=== PATIENT | female | born 1995 | race Caucasian/White ===

== ENCOUNTER → 2022-08-17 14:14 | Outpatient (CLI) | payer OTHER, SELFPAY ==
--- NOTE | ~2022-08-17 | US_ITS ---
EXAMINATION: US OB <= 14 weeks fetus DATE: 08/17/2022 14:40 INDICATION: First trimester with inconclusive viability TECHNIQUE: Real-time pelvic ultrasound utilizing both a transvaginal and transabdominal probe was pe rformed. The interpreting radiologist was not present for the study. COMPARISON: None. FINDINGS: The uterus measures 12.5 x 7.0 x 9.1 cm. There is an intrauterine gestational sac. A yolk sac and fe radha pole are identified. The crown rump length measures 4.9 cm, which correlates with an estimated ge stational age of 11 weeks and 5 days. heart motion is identified measuring 162 beats per minute (bpm) by M-mode Doppler. The right ovary measures 2.7 x 1.7 x 2.0 cm. The left ovary measures 2.7 x 2.0 x 1.9 cm. There is no free fluid in the pelvis. IMPRESSION: 1. Single living fetus with heart rate of 162 bpm. 2. Gestational age by ultrasound of 11 weeks 5 day(s) +/- 7 day(s) with ultrasound estimated date of delivery (KALA) of 03/03/2023. Reviewed, dictated and finalized at location A. OR PROPERTY ACCOUNTANT IMPRESSION: 1. Single living fetus with heart rate of 162 bpm. 2. Gestational age by ultrasound of 11 weeks 5 day(s) +/- 7 day(s) with ultras ound estimated date of delivery (KALA) of 03/03/2023.
== END ==
PROVIDERS: PCP Advanced Practice Midwife; Visit Provider Advanced Practice Midwife
DX: O36.80X0 Pregnancy with inconclusive fetal viability, not applicable or unspecified (principal); Z3A.11 11 weeks gestation of pregnancy
CPT/HCPCS: 76801

== ENCOUNTER 2022-09-29 11:00 | Outpatient (CLI) | payer OTHER, SELFPAY ==
[2022-09-29 12:38] LABS: Basophils Percent Auto 0.3 % (0.2-1.2); Eosinophils Percent Auto 0.3 % (0-4.4); Hematocrit 39.3 % (37.0-47.0); Hemoglobin 13.4 g/dL (12.0-15.0); Immature Granulocyte Absolute 0.05 K/mm3 (0.00-0.031); Immature Granulocyte Percent A 0.4 % (0-0.5); Lymphocytes Absolute Auto 1.82 K/mm3 (0.9-3.2); Lymphocytes Percent Auto 15.6 % (18.3-44.2); Mean Corpuscular HGB Conc 34.1 g/dl (32-36); Monocytes Absolute Auto 0.5 K/mm3 (0.1-0.6); Monocytes Percent Auto 4.6 % (2.6-8.5); Neutrophils Absolute Auto 9.2 K/mm3 (1.3-6.7); Neutrophils Percent Auto 78.8 % (45.5-73.1); Platelet Count Result 363 k/mm3 (150-375); Red Blood Count 4.32 M/mm3 (4.2-5.4); Red Cell Distribution Width 13.1 % (11.5-14.5); White Blood Count 11.7 K/mm3 (4.5-10.0)
[2022-09-29 13:14] LABS: Vitamin D 25 Hydroxy 46.9 ng/mL
[2022-09-29 13:32] LABS: HIV 1/2 Ab P24 Ag Result Negative (Negative)
[2022-09-29 13:40] LABS: Hemoglobin A1C 4.8 % (<5.7)
[2022-09-29 14:42] LABS: Hepatitis B Surface Antigen Negative (Negative)
[2022-10-02 12:19] LABS: Rapid Plasma Reagin Non-Reactive (NonReactive)
== END 2022-09-29 11:01 | disposition home or self-care (01) ==
LOC: ANHLAB 11:03
PROVIDERS: PCP Advanced Practice Midwife; Visit Provider Obstetrics & Gynecology Gynecology
DX: Z36.9 Encounter for antenatal screening, unspecified (principal); Z3A.00 Weeks of gestation of pregnancy not specified
CPT/HCPCS: 36415; 82306; 83036; 85025; 86592; 86703; 86762; 86850; 86900; 86901; 87340; G0432

== ENCOUNTER 2022-10-04 14:40 | Outpatient (CLI) | payer OTHER, SELFPAY ==
--- NOTE | ~2022-10-04 | US_ITS ---
EXAMINATION: US OB /maternal detail DATE: 10/04/2022 15:23 INDICATION: Second trimester anatomic survey TECHNIQUE: Real-time ultrasound of the pelvis was performed. COMPARISON: None. FINDINGS: There is a single living fetus in breech presentation. The placenta is anterior. The cervical length is 3.9 cm. heart rate is 136 beats per minute (bpm). cardiac activity and movement are noted. The amniotic fluid index is subjectively normal. The following anatomy was identified as normal: 4 chamber heart 3 vessel cord cord insertion kidneys urinary bladder stomach spine diaphragm ventricles cisterna magna cerebellum The following biometric data were obtained: Biparietal diameter (BPD): 4.5 cm; head circumference (HC): 16.5 cm; abdominal circumference (AC): 13 .1 cm; femur length (FL): 2.7 cm. These measurements are concordant. Estimated weight is 249 g +/- 37 g, which correlates with the 49th percentile when 03/03/2023 is used as estimated date of delivery. As single measurements, these parameters are each equal to the following estimated gestational ages w ith ranges of +/- 2 standard deviations: BPD: 19 weeks 4 days +/- 1 weeks 5 days. HC: 19 weeks 2 days +/- 1 weeks 3 days. AC: 18 weeks 5 days +/- 2 weeks 0 days. FL: 18 weeks 3 days +/- 1 weeks 6 days. estimated gestational age based solely on measurements from this exam is 19 weeks 0 days +/- 1 weeks 2 days. IMPRESSION: 1. Single living fetus in breech presentation. 2. Estimated weight is 249 g +/- 37 g, which correlates with the 49th percentile when 03/03/2023 is used as estimated date of delivery. Reviewed, dictated and finalized at location F. EL SCREENER IMPRESSION: 1. Single living fetus in breech presentation. 2. Estimated weight is 249 g +/- 37 g, which correlates with the 49th per centile when 03/03/2023 is used as estimated date of delivery.
== END 2022-10-04 14:41 | disposition home or self-care (01) ==
PROVIDERS: PCP Advanced Practice Midwife; Visit Provider Advanced Practice Midwife
DX: O32.1XX0 Maternal care for breech presentation, not applicable or unspecified (principal); Z3A.19 19 weeks gestation of pregnancy
CPT/HCPCS: 76805

== ENCOUNTER 2022-11-21 11:05 | Outpatient (CLI) | payer OTHER, SELFPAY ==
[2022-11-21] VITALS (11 sets, daily range): BP systolic 101–103; BP diastolic 59–62; PULSE 69–90; O2SAT 100
== END 2022-11-21 12:15 | disposition home or self-care (01) ==
LOC: ANHOBOP 11:12 → ANHOBPP 11:13
PROVIDERS: Visit Provider Obstetrics & Gynecology Gynecology
DX: O36.8120 Decreased fetal movements, second trimester, not applicable or unspecified (principal); Z3A.25 25 weeks gestation of pregnancy
CPT/HCPCS: 59025; 99199

== ENCOUNTER 2022-12-04 14:47 | Outpatient (CLI) | payer OTHER, SELFPAY ==
[2022-12-04 16:10] LABS: Hematocrit 38.3 % (37.0-47.0); Hemoglobin 12.8 g/dL (12.0-15.0)
[2022-12-04 16:22] LABS: Glucose 1 Hour PP 50gm Dose 97 mg/dL
[2022-12-04 17:00] LABS: HIV 1/2 Ab P24 Ag Result Negative (Negative)
[2022-12-04 18:19] LABS: Vitamin D 25 Hydroxy 40.7 ng/mL
== END 2022-12-04 14:48 | disposition home or self-care (01) ==
PROVIDERS: Visit Provider Obstetrics & Gynecology Gynecology
DX: Z34.03 Encounter for supervision of normal first pregnancy, third trimester (principal); Z3A.00 Weeks of gestation of pregnancy not specified
CPT/HCPCS: 36415; 82306; 82947; 85014; 85018; 86703; G0432

== ENCOUNTER 2023-02-13 10:35 | Outpatient (CLI) | payer OTHER, SELFPAY ==
--- NOTE | ~2023-02-13 | US_ITS ---
EXAMINATION: US OB follow up DATE: 02/13/2023 11:15 INDICATION: Dyspnea size greater than expected for estimated gestational age TECHNIQUE: Real-time ultrasound of the pelvis was performed. The interpreting radiologist was not pre sent for the study. COMPARISON: None. FINDINGS: There is a single living fetus in vertex presentation. The placenta is anterior. heart rate is 127 beats per minute (bpm). The amniotic fluid index is 15.1 cm, which is normal. (5th%-95%: 7.5-24 .4 cm at 37 weeks estimated gestational age). The following biometric data were obtained: BPD: 9.2 cm -> 37 weeks 1 days Head circumference: 32.9 cm -> 37 weeks 2 days Abdominal circumference: 35.3 cm -> 39 weeks 1 days Femur length: 7.6 cm -> 39 weeks 0 days These measurements are concordant. Head circumference to abdominal circumference ratio: 0.93 (normal range 0.89-1.06). Estimated weight: 3562 g (+/-) 534 g or 7 lbs. 14 oz. (+/-) 1 lbs. 3 oz. IMPRESSION: 1. Single living fetus in vertex presentation with heart rate of 127 bpm. 2. Normal amniotic fluid index of 15.1 cm. 3. Estimated weight is 87th percentile by Hadlock criteria when 03/03/2023 is used as the estima kai date of delivery (KALA). Please correlate with clinical information or earlier ultrasounds for mos t accurate KALA. Reviewed, dictated and finalized at location A. IMPRESSION: 1. Single living fetus in vertex presentation with heart rate of 127 bpm. 2. Normal amniotic fluid index of 15.1 cm. 3. Estimated weight is 87th percentile by Hadlock criteria when 03/03/2023 is used as the estimated date of delivery (KALA). Please correlate with clinica l information or earlier ultrasounds for most accurate KALA.
== END 2023-02-13 10:36 | disposition home or self-care (01) ==
PROVIDERS: Visit Provider Obstetrics & Gynecology Gynecology
DX: O36.63X0 Maternal care for excessive fetal growth, third trimester, not applicable or unspecified (principal); Z3A.00 Weeks of gestation of pregnancy not specified
CPT/HCPCS: 76816

== ENCOUNTER 2023-02-20 15:18 | Inpatient (IN) | payer OTHER, SELFPAY ==
[2023-02-20] VITALS (57 sets, daily range): BP systolic 37–127; BP diastolic 15–109; PULSE 71–130; TEMP 36.7–37; O2SAT 100; BMI 29.1
--- NOTE | 2023-02-20 19:56 | LDADM ---
This patient, Abi Burnett, was admitted to Labor/Delivery/Recovery 105 on 02/20/23 at 15:18. Plans for labor, pain management and were discussed with patient. Patient/family oriented to hospital policies and general routines including ID bracelet, bed and alarms, visiting hours, pain management, procedures, bathroom and other care routines, personal items, smoking policy, room service/diet and guest tray routines, security routines, and visiting hours. Patient/Family are encouraged to report perceived risks to care and to ask questions if they do not understand what they are told or what they should do. See OBIX for further documentation.
[2023-02-20 20:24] LABS: Basophils Absolute Auto 0.1 K/mm3 (0.0-0.1); Basophils Percent Auto 0.4 % (0.2-1.2); Eosinophils Absolute Auto 0.1 K/mm3 (0-0.3); Eosinophils Percent Auto 0.4 % (0-4.4); Hematocrit 40.2 % (37.0-47.0); Hemoglobin 13.1 g/dL (12.0-15.0); Immature Granulocyte Percent A 0.7 % (0-0.5); Lymphocytes Absolute Auto 2.66 K/mm3 (0.9-3.2); Lymphocytes Percent Auto 18.1 % (18.3-44.2); Mean Corpuscular HGB Conc 32.6 g/dl (32-36); Mean Corpuscular Hemoglobin 28.6 pg (26-34); Mean Corpuscular Volume 87.8 fl (80-100); Mean Platelet Volume 11.2 fl (7.4-10.4); Monocytes Absolute Auto 0.8 K/mm3 (0.1-0.6); Monocytes Percent Auto 5.5 % (2.6-8.5); Neutrophils Percent Auto 74.9 % (45.5-73.1); Platelet Count Result 317 k/mm3 (150-375); Red Blood Count 4.58 M/mm3 (4.2-5.4); Red Cell Distribution Width 13.1 % (11.5-14.5); White Blood Count 14.7 K/mm3 (4.5-10.0)
[2023-02-20] MEDS: LACTATED RINGERS 1,000 ML 125 ML IV CONT ×2 (20:26→23:15)
[2023-02-20] MEDS: AMPICILLIN 2 GM/NS 100 ML 2 GM/100 ML BAG IVPB (20:27)
--- NOTE | 2023-02-20 22:20 | WPDANESEPP ---
Anes - Eval Pre Procedure Procedure: labor epidural Date/Time: 02/20/23 22:20 Surgeon: carrie Preop Diagnosis: pain during labor Pre Op Diagnosis: Labor Patient Data Age: 28 Gender: F Height: 1.65 m Weight: 79.5 kg Last Vital Signs Temp 36.7 C 02/20/23 15:45 Pulse 72 02/20/23 22:16 BP 127/83 02/20/23 22:16 Allergies Allergy/AdvReac Type Severity Reaction Status Date / Time cefadroxil Allergy Unknown unknown Verified 11/21/22 18:28 adhesive tape AdvReac Blister Verified 02/02/23 12:41 Home Medications Medication Instructions Recorded Confirmed Type albuterol sulfate 90 mcg/actuation 2 puff inhalation Q6H PRN 11/21/22 11/21/22 History aerosol inhaler Shortness Of Breath aspirin 81 mg chewable tablet 81 mg PO DAILY 11/21/22 11/21/22 History vit no.95-ferrous 1 tablet PO HS 11/21/22 11/21/22 History fumarate 28 mg-folic acid 800 mcg tablet () sertraline 25 mg tablet 25 mg PO HS 11/21/22 11/21/22 History Laboratory Tests 02/20/23 18:45 WBC 14.7 H K/mm3 (4.5-10.0) RBC 4.58 M/mm3 (4.2-5.4) Hgb 13.1 g/dL (12.0-15.0) Hct 40.2 % (37.0-47.0) MCV 87.8 fl (80-100) MCH 28.6 pg (26-34) MCHC 32.6 g/dl (32-36) RDW 13.1 % (11.5-14.5) Plt Count 317 k/mm3 (150-375) MPV 11.2 H fl (7.4-10.4) Immature Gran % (Auto) 0.7 H % (0-0.5) Neut % (Auto) 74.9 H % (45.5-73.1) Lymph % (Auto) 18.1 L % (18.3-44.2) [place] % (Auto) 5.5 % (2.6-8.5) Eos % (Auto) 0.4 % (0-4.4) Baso % (Auto) 0.4 % (0.2-1.2) Lymph # (Auto) 2.66 K/mm3 (0.9-3.2) [place] # (Auto) 0.8 H K/mm3 (0.1-0.6) Eos # (Auto) 0.1 K/mm3 (0-0.3) Baso # (Auto) 0.1 K/mm3 (0.0-0.1) Abs Immat Gran (auto) 0.10 H K/mm3 (0.00-0.031) Absolute Neuts (auto) 11.0 H K/mm3 (1.3-6.7) Absolute Nucleated RBC 0.0 K/mm3 (0.0-0.012) Nucleated RBC % 0.0 % (0.0-0.2) RPR Pending Blood Type O Positive Antibody Screen Negative Patient hx anesthesia problems: none Family hx anesthesia problems: none Results Review: All pre-operative results and documents have been reviewed as part of the pre-operative evaluation. [facility] Past Medical History Medical History (Updated 02/20/23 @ 22:21 by Patricia Herrera CRNA) IUP (intrauterine ), incidental Family History Family History Mother Patient's mother is in good health Father Patient's father is in good health Sibling Patient's brother is in good health Social History Social History (Updated 04/21/21 @ 13:47 by Caro Enriquez MA) Smoking status: Former smoker Alcohol intake: current Substance use: never Lack of Transportation: No Lack of Food: Never True Current Housing: I Have Housing Concerned About Future Housing: No Difficulty Paying Gas/Electric Bills: No Difficulty Paying for Meds: No Currently Unemployed: YES Education: Trade/Vocational Certificate Difficulty w/ Childcare or Family Care: No Spiritual care concerns: No Exam Day of Procedure 02/20/23 22:20
[2023-02-21] VITALS (184 sets, daily range): BP systolic 86–133; BP diastolic 52–99; PULSE 61–140; RESP 16–18; TEMP 36.7–38.8; O2SAT 83–100
[2023-02-21] MEDS: AMPICILLIN 1 GM/NS 50 ML 1 GM/50 ML BAG IVPB ×3 (00:37→09:06)
[2023-02-21] MEDS: OXYTOCIN 30 UNITS/NS 500 ML 30 UNITS/500 ML BAG IV CONT (02:30)
--- NOTE | 2023-02-21 07:14 | WPDOBADMIT ---
Obstetrics - Admit Note Admission Note: record reviewed. No pertinent additions to the history and/or any subsequent changes in the physical findings that are not consistent with the expected course of the were found. Additions to the history and/or subsequent changes in the physical findings follow. Pt admitted with contractions and SROM of clear fluid.
--- NOTE | 2023-02-21 07:14 | PM.OBPNLAB ---
Pain Control Date/time seen: 02/21/23 07:10 Pain control: tolerating well and epidural Comments: Family present and supportive. Pelvic Exam Comments: 5cm per last RN SVE Contractions Monitor mode: External Contraction frequency: 2 (2-4) Contraction duration: 60 Status status: Category l Assessment and Plan Assessment: active labor Plan: continuous present management Comments: Discussed plan of care. Anticipate vaginal . Dr. James updated.
[2023-02-21] MEDS: LACTATED RINGERS 1,000 ML 125 ML IV CONT (09:06)
[2023-02-21 12:44] LABS: Rapid Plasma Reagin Non-Reactive (NonReactive)
--- NOTE | 2023-02-21 12:48 | PM.OBPRVD ---
OB - Delivery Note Procedure Delivery date: 02/21/23 Procedure: Events: Positive Group B Strep (GBS) Induction method: Per Pitocin Protocol Delivery monitor: External FHT and External Uterine Route of delivery: Episiotomy description: None Laceration Description: Perineal - 2nd Degree Delivery repair: vicryl Specimen: No Quantitative Blood Loss (ml): 150 Anesthesia type: Epidural Disposition: Floor Narrative: Patient arrived with contractions and vaginal spotting. She had spontaneous rupture of membranes while on Labor and delivery. She was kept for labor and augmented with Pitocin. She progressed to complete dilation and pushed with contractions. After the delivery of the head, a snug nuchal cord was noted x1. There was good restitution of the head and easy delivery of the anterior and posterior shoulders. The was delivered in the somersault maneuver and the nuchal cord was reduced. The was placed on the maternal abdomen and dried and stimulated by the nursery staff. After almost 1 minute the cord was doubly clamped and cut. Cord blood, cord gases, and cord segment were obtained. The fundus remained firm and there was excellent hemostasis. All delivery counts correct. Mother and skin to skin in the delivery room. Baby Date of : 02/21/23 Time of : 12:21 Weeks of gestation at delivery: 38 gender: Female Weight (pounds): 8 Weight (ounces): 9 presentation: vertex position: Right Occiput Posterior Placenta delivery description: Spontaneous and Normal Configuration Cord Vessel Description: 3 Vessels, Nuchal Cord, Clamped/Cut and Delayed Cord Clamping score one minute: 6 score five minutes: 9
[2023-02-21] MEDS: OXYTOCIN 30 UNITS/NS 500 ML 30 UNITS/500 ML BAG 125 UNITS IV CONT (12:52)
--- NOTE | 2023-02-21 12:52 | PM.OBDSVD ---
DS: Admitting Diagnosis Discharge Date 02/23/23 Admitting Diagnosis Labor at term GBS+ Anxiety/Depression/PTSD Marijuana use in Hx Vidocin, Xanax, ETOH abuse prior to DS: Discharge Diagnosis Discharge Diagnosis (1) Anxiety: Code(s): F41.9 - Anxiety disorder, unspecified Status: Acute (2) Depression: Code(s): F32.A - Depression, unspecified Status: Acute (3) Marijuana use during : Code(s): O99.320 - Drug use complicating , unspecified trimester; F12.90 - Cannabis use, unspecified, uncomplicated Status: Acute (4) (normal spontaneous vaginal delivery): Code(s): O80 - Encounter for full-term uncomplicated delivery Status: Acute (5) Mother currently breast-feeding: Code(s): Z39.1 - Encounter for care and examination of lactating mother Status: Acute OB - DS: Summary Hospital Course Hospital Course: Uncomplicated OB Procedures : Ultrasound OB Procedures Intrapartum: Spontaneous Vag Delivery and GBS prophylaxis OB Procedures: : None Peripartum Data Delivery Method: Natural Vaginal Laceration Description: Perineal - 2nd Degree Episiotomy description: None complications: none Status at Discharge Functional status at discharge: independent ambulation Overall status at discharge: patient is progressing back to baseline Time Spent with Patient Time attestation: Total time spent providing and/or coordinating discharge services: Exam Narrative: Alert and oriented. Mood is pleasant and cooperative. Urinating without difficulty. Denies passing any large clots. Perineum with minimal edema. Fundus firm and below umbilicus. Const: General: cooperative, healthy appearing, no acute distress and alert Orientation/consciousness: patient oriented x3 Limitations: no limitations Resp: Effort & Inspection: normal respiratory effort Auscultation: clear to auscultation bilaterally Cardio: Rate: regular rate GI: Inspection: normal to inspection Neuro: General: patient oriented x3 Extrem: General: normal to inspection Psych: Appearance: grossly normal Mental Status: mental status grossly normal Affect: normal affect Thought process: Normal thought process present DS: Data Data Completed and Pending Labs on day of discharge: Labs from last 24 hours 02/20/23 18:45 WBC 14.7 H RBC 4.58 Hgb 13.1 Hct 40.2 MCV 87.8 MCH 28.6 MCHC 32.6 RDW 13.1 Plt Count 317 MPV 11.2 H Immature Gran % (Auto) 0.7 H Neut % (Auto) 74.9 H Lymph % (Auto) 18.1 L [place] % (Auto) 5.5 Eos % (Auto) 0.4 Baso % (Auto) 0.4 Lymph # (Auto) 2.66 [place] # (Auto) 0.8 H Eos # (Auto) 0.1 Baso # (Auto) 0.1 Abs Immat Gran (auto) 0.10 H Absolute Neuts (auto) 11.0 H Absolute Nucleated RBC 0.0 Nucleated RBC % 0.0 RPR Non-reactive Blood Type O Positive Antibody Screen Negative Discharge Plan Discharge Attending physician on discharge: Sandrine James Discharging Clinician: Sandrine James Anticipated Discharge Date/Time: 02/23/23 12:54 Patient Disposition: Home, Self-Care Activity: may shower Diet: as tolerated Wound Care Instructions: follow printed instructions Discharge Instructions: Continue taking your vitamin and any other supplements as previously directed (Examples: Iron, Vitamin D). You may take Tylenol 1000mg over the counter every 6 hours as needed for pain. Do not exceed 4000mg of Tylenol daily. You may continue using tucks pads and dermoplast spray if needed for a few more days. Patient Instructions: Antibiotic Form Stand Alone Forms: General Discharge Information Follow-up/Referrals: Ines Santana CNM [Certified Nurse Tableau Administrator] - (6 week visit) Discharge Medications: New docusate sodium [Colace] 100 mg capsule 100 mg PO BID Qty: 60 0RF ibuprofen 600 mg tablet 600 mg PO Q6H PRN (Reason: pain
[2023-02-21] MEDS: WITCH HAZEL 40 PADS 1 PAD TOPICAL (14:04)
[2023-02-21] MEDS: IBUPROFEN 600 MG TABLET PO ×2 (14:18→20:11)
--- NOTE | 2023-02-21 15:20 | OBPPTRN ---
Addendum entered by Ambreen Arthur RN 02/21/23 15:53: Patient transferred to post room #[id number]. Support person present. Oriented to unit, room, information board, rooming in, admission packet and security measures. Patient verbalizes understanding. Original Note: Patient transferred to post room # via ( ). Support person present. Oriented to unit, room, information board, rooming in, admission packet and security measures. Patient verbalizes understanding.
[2023-02-22] MEDS: IBUPROFEN 600 MG TABLET PO ×2 (03:42→17:11)
[2023-02-22 04:03] LABS: Hematocrit 36.2 % (37.0-47.0); Hemoglobin 11.8 g/dL (12.0-15.0)
[2023-02-22 07:00] VITALS: BP 104/71; PULSE 76; RESP 16; TEMP 36.4; O2SAT 100
--- NOTE | 2023-02-22 07:49 | PM.OBPNVD ---
OB - PN: Subj Subjective Date/time seen: 02/22/23 07:49 Patient comments: no complaints and pain well controlled baby status: doing well OB - PN: Obj Data Labs 02/22/23 03:33 Labs: Laboratory Results - last 24 hr 02/20/23 02/22/23 18:45 03:33 Hgb 11.8 L Hct 36.2 L RPR Non-reactive OB - PN A/P Plan day: 1 Plan: routine care, discharge home, follow up 6 weeks and other (Nexplanon for bc) Time Spent With Patient Time: Total time spent is greater than 50% in coordination of care (as documented) at patient's floor/unit and/or counseling patient: Exam : Bimanual exam- vagina & uterus: other (Uterus firm, nt @U)
[2023-02-22] MEDS: ACETAMINOPHEN 325 MG TABLET 650 MG PO (08:51)
[2023-02-22] MEDS: MULTIVIT/MIN/PREN/FOL AC/IRON TABLET 1 TAB PO (08:53)
--- NOTE | 2023-02-22 11:09 | PC.NURSE ---
0820 Introductions were made, then consulted with patient to assess needs related to . Mother led the conversation with her?plans to feed?her infant and the?experience so far. Resources provided for inpatient and outpatient services with the feeding sheet, mom/baby guide and name written on the white board. Mother verbalizes she is able to independently latch infant with appropriate positioning/alignment. She denies any nipple discomfort and is responsively . is currently meeting outcomes for weight, output, jaundice and feeding frequencies of 8-12 times in 24 hours. Mother given information and guidance concerning milk production and breast soreness prevention. Encouraged to express breast milk onto nipples and use lanolin as needed. Also thoroughly described and demonstrated how to properly detach baby from breast. Encouraged to feed every 2-3 hours on both breasts if possible. Mother encouraged to call for assistance if her infant does not latch or there is discomfort with latching. Mother voiced understanding of information and will call if there is a request for assistance. Reported to the primary RN.
[2023-02-22 11:41] VITALS: BP 108/69; PULSE 75; RESP 16; TEMP 37.3; O2SAT 98
--- NOTE | 2023-02-22 14:03 | WPDANLDPN2 ---
Anes-Prog Note L&D Date/Time: 02/22/23 14:03 Comfortable throughout: labor and delivery Neuraxial method: epidural Epidural/Spinal procedure site: clean & non-tender Neuro status: Neuro function grossly intact. Cardiovascular status: normal Respiratory status: normal Airway patency: baseline Mental status: baseline Post-Op hydration status: normal Vital Signs: Last Vital Signs Temp 37.3 C 02/22/23 11:41 Pulse 75 02/22/23 11:41 Resp 16 02/22/23 11:41 BP 108/69 02/22/23 11:41 Pulse Ox 98 02/22/23 11:41 O2 Del Method Room Air 02/22/23 07:00 Pain score (VAS): 08/15 Post-procedural complaints: none Patient feedback: Patient satisfied with anesthetic care.
[2023-02-22 19:45] VITALS: BP 124/72; PULSE 82; RESP 16; RESP 18; TEMP 36.6; O2SAT 100
[2023-02-23] MEDS: ACETAMINOPHEN 325 MG TABLET 650 MG PO (00:19)
[2023-02-23 07:30] VITALS: BP 117/71; PULSE 100; RESP 18; TEMP 37.2; O2SAT 99
--- NOTE | 2023-02-23 07:53 | PM.OBPNVD ---
OB - PN: Subj Subjective Date/time seen: 02/23/23 07:53 Interval history: PPD 2 from . Mood pleasant. Patient comments: no complaints and pain well controlled baby status: doing well and nursing well [place] feeding status: exclusively breast feeding OB - PN: Obj Data Labs 02/22/23 03:33 OB - PN A/P Plan day: 2 Plan: discharge home Time Spent With Patient Time: Total time spent is greater than 50% in coordination of care (as documented) at patient's floor/unit and/or counseling patient: Review of Systems Review of Systems: All systems reviewed & are unremarkable except as noted in HPI and below Exam Narrative: Alert and oriented. Mood is pleasant and cooperative. Urinating without difficulty. Denies passing any large clots. Perineum with minimal edema. Fundus firm and below umbilicus. Const: General: cooperative, healthy appearing, no acute distress and alert Orientation/consciousness: patient oriented x3 Limitations: no limitations Resp: Effort & Inspection: normal respiratory effort Auscultation: clear to auscultation bilaterally Cardio: Rate: regular rate GI: Inspection: normal to inspection Neuro: General: patient oriented x3 Extrem: General: normal to inspection Psych: Appearance: grossly normal Mental Status: mental status grossly normal Affect: normal affect Thought process: Normal thought process present
[2023-02-23 08:00] VITALS: PULSE 100; RESP 18; O2SAT 99
[2023-02-23] MEDS: DOCUSATE SODIUM 100 MG CAPSULE PO (08:09)
[2023-02-23] MEDS: MULTIVIT/MIN/PREN/FOL AC/IRON TABLET 1 TAB PO (08:09)
[2023-02-23] MEDS: IBUPROFEN 600 MG TABLET PO (08:12)
[2023-02-23] MEDS: MEASLES,MUMPS,RUBELLA VACCINE 0.5 ML VIAL SUB-Q (12:34)
--- NOTE | 2023-02-23 13:15 | PC.NURSE ---
Patient viewed the discharge video Mother & Baby Care, The First Two Weeks . Patient was given the opportunity and encouraged to ask questions. Patient verbalized understanding of information shared and has been given the mother/baby guide for home reference.
[2023-02-24 09:32] VITALS: BP 114/66; PULSE 87; RESP 18; TEMP 36.9; O2SAT 98
== END 2023-02-23 14:54 | disposition home or self-care (01) | DRG 807 ==
LOC: ANHLDR 02-21 12:56 → ANHOB2 02-21 15:57
PROVIDERS: Admitting Provider Obstetrics & Gynecology Gynecology; Referring Provider Advanced Practice Midwife; Visit Provider Obstetrics & Gynecology Gynecology
DX: O99.824 Streptococcus B carrier state complicating childbirth (principal); Z37.0 Single live birth; O70.1 Second degree perineal laceration during delivery; O69.1XX0 Labor and delivery complicated by cord around neck, with compression, not applicable or unspecified; O99.344 Other mental disorders complicating childbirth; F41.8 Other specified anxiety disorders; O77.0 Labor and delivery complicated by meconium in amniotic fluid; Z3A.38 38 weeks gestation of pregnancy; O99.324 Drug use complicating childbirth; F12.90 Cannabis use, unspecified, uncomplicated
CPT/HCPCS: 36415; 84112; 85014; 85018; 85025; 86592; 86850; 86900; 86901; 90710; A9270; J0290; J2590; J2795; J7120